=== PATIENT | female | born 1960 | race Caucasian/White ===

== ENCOUNTER → 2017-08-14 | Outpatient (CLI) | payer OTHER ==
[2016-05-22 12:45] VITALS: BMI 51.0
[~2017-08-14] MED LIST: ASPI-757 PO; ASPI-879 PO; CEL100 PO; CLI150 PO; CYAN100T31 PO; CYAN25004; FLU20 PO; FLUO-201 PO; FLUT9.9S; GLUC500C29 PO; INDO25 PO; INDO50CA92 PO; INDO50SU3 PO; IRO150 PO; LOR5/325 PO; MULT-1047 PO; MULT-865 PO; OXYC-865 PO; PER PO; TRAZ-156 PO; VITA1CAP46 PO; [UNRECOGNIZED DRUG - CODE] PO; [UNRECOGNIZED DRUG - OTHER]; potassium PO
== END ==
LOC: RESP 20:52
PROVIDERS: ATTEND Internal Medicine
DX: G47.33 Obstructive sleep apnea (adult) (pediatric) (principal); G47.61 Periodic limb movement disorder

== ENCOUNTER → 2017-08-28 | Outpatient (CLI) | payer OTHER ==
[2016-05-22 12:45] VITALS: BMI 51.0
[~2017-08-28] MED LIST changes: +BUPR-124 PO; +OMEG10007; +OMEP10CA40 PO
[2017-08-28 11:44] LABS: PLATELET COUNT, AUTOMATED 412 K/uL (150-450)
[2017-08-28 11:57] LABS: LDL CHOLESTEROL 87 mg/dl
--- NOTE | 2017-08-28 12:00 | RADIOLOGY IMAGING REPORT ---
FACILITY: [facility] [place] PATIENT NAME: Ene Warren : 1960 MR: [id number] V: [id number] EXAM DATE: ORDERING PHYSICIAN: WILI GOODSON TECHNOLOGIST: Location: [facility] Patient: Ene Warren : 1960 Visit/Account:[id number] Date of Sevice: 08/28/2017 Exam type: CHEST PA AND LAT History: Dyspnea and cough Comparison: May 06, 2016. Findings: A subtle nodular infiltrate seen throughout the right lung and left lung base new since the prior anselmo dy. There is no evidence of pleural effusions. The cardiac silhouette is normal in size. IMPRESSION: 1. Subtle nodular infiltrates throughout the right lung and left lung base worrisome for multifocal pneumonia given the clinical history. Follow-up chest recommended to assure clearing Report Dictated By: María White MD at 08/28/2017 11:54 AM Report E-Signed By: María White MD at 08/28/2017 11:56 AM PAGEN:[email or web address]
== END ==
LOC: LAB 10:59
PROVIDERS: ATTEND Emergency Medicine
DX: R91.8 Other nonspecific abnormal finding of lung field (principal); R06.00 Dyspnea, unspecified
CPT/HCPCS: 36415; 71046; 82040; 82247; 82310; 82374; 82435; 82465; 82565; 82947; 83718; 83880; 84075; 84132; 84155; 84295; 84443; 84450; 84460; 84478; 84520; 85025; 85379

== ENCOUNTER → 2017-08-29 | Outpatient (CLI) | payer OTHER ==
[2016-05-22 12:45] VITALS: BMI 51.0
[~2017-08-29] MED LIST changes: +CODE118S5 PO; +IOPAMIDOL 76% 75 ML INFUS BTL 75 ML ONE; +LEVO750T44 PO; +NS 0.9% 50 ML VIAL 50 ML ONE
--- NOTE | 2017-08-29 14:34 | RADIOLOGY IMAGING REPORT ---
[place] [facility] [place] NAME: Ene Warren : 1960 MR: [id number] V: [id number] EXAM DATE: ORDERING PHYSICIAN: WILI GOODSON TECHNOLOGIST: Location: [facility] Patient: Ene Warren : 1960 Visit/Account:[id number] Date of Sevice: 08/29/2017 CHEST W CONTRAST COMPARISON: None. HISTORY: abnormal chest xray. Follow-up nodular infiltrates, right lung and left lung base. Shortnes s of breath. TECHNIQUE: Axial CT of the chest with intravenous contrast. Coronal and sagittal reformats. One of t he following dose optimization techniques was utilized in the performance of this exam: automated ex posure control; adjustment of the mA and/or kV according to patient size; or use of iterative reconst ruction technique. Specific details can be referenced in the facility's radiology CT exam operationa l policy. CONTRAST: 75 mL of IV Isovue-370. CT CHEST FINDINGS: CARDIAC: Unremarkable. MEDIASTINUM/VELVET: Prominent but subcentimeter size mediastinal and right hilar lymph nodes, probably reactive. VASCULATURE: Minor thoracic aorta calcifications. CHEST WALL: No axillary adenopathy or chest wall mass. LUNGS/PLEURA: Clustered groundglass density nodular foci consistent with multifocal alveolitis/early consolidation throughout the right upper, right middle and right lower lobes, and also present to a lesser degree in the left apex. Trace right pleural effusion.. There is mild bronchial wall thickenin g. Patent central airways. Irregular cluster of more solid-appearing nodules with irregular margins i n the right lower lobe most consistent with early nodular consolidation. BONES: Minor lower thoracic spine degenerative change. No significant lesion or acute appearing fra cture. LIMITED ABDOMEN: Cholecystectomy and gastric bypass surgery changes. OTHER: Negative. IMPRESSION: 1. Multifocal lung opacities consistent with alveolitis/early consolidation throughout the right upp er, right middle and right lower lobes and present to a lesser degree in the left apex. Trace right p leural effusion. Follow-up to complete resolution recommended to exclude underlying malignancy which is unlikely on the basis of the current appearance. 2. Subcentimeter, reactive appearing mediastinal and right hilar nodes. 3. Prior cholecystectomy and gastric bypass surgery. Report Dictated By: Pepe Gardner at 08/29/2017 2:22 PM Report E-Signed By: Pepe Gardner at 08/29/2017 2:29 PM WSN:[id number]
== END ==
LOC: CT 06:54
PROVIDERS: ATTEND Emergency Medicine
DX: R91.8 Other nonspecific abnormal finding of lung field (principal); J90 Pleural effusion, not elsewhere classified; Z90.710 Acquired absence of both cervix and uterus; Z98.84 Bariatric surgery status
CPT/HCPCS: 71260; J7050; Q9967

== ENCOUNTER → 2017-09-05 | Outpatient (CLI) | payer OTHER ==
[2016-05-22 12:45] VITALS: BMI 51.0
[~2017-09-05] MED LIST changes: -IOPAMIDOL 76% 75 ML INFUS BTL 75 ML ONE; -NS 0.9% 50 ML VIAL 50 ML ONE
--- NOTE | 2017-09-10 09:31 | RADIOLOGY IMAGING REPORT ---
FACILITY: [facility] PATIENT NAME: EMIL WHITAKER : [id number] MR: [id number] V: [id number] EXAM DATE: [id number] ORDERING PHYSICIAN: WILI GOODSON TECHNOLOGIST: Alanna Otoole PROCEDURE:BILATERAL DIGITAL SCREENING MAMMOGRAM WITH CAD AND 3D BREAST TOMOSYNTHESIS. COMPARISON:02/23/15 with priors back to 10/18/10. INDICATIONS:ROUTINE SCREENING FINDINGS: Breast parenchymal density is mostly fatty. There are no mammographic findings concerning for malignancy. No significant interval change. DIAGNOSTIC CATEGORY 1--NEGATIVE. RECOMMENDATIONS: ROUTINE MAMMOGRAM AND CLINICAL EVALUATION. IMPRESSION: Bi-RADS 1: Negative. RECOMMENDATION: Followup screening mammogram in one year. Dictated by: Matthew Cevallos on 09/08/2017 at 9:28 Transcribed by: PEDRO LUIS on 09/08/2017 at 22:36 Approved by: María White M.D. on 09/10/2017 at 8:51 [facility]
== END ==
LOC: MAMO 04:23
PROVIDERS: ATTEND Emergency Medicine
DX: Z12.31 Encounter for screening mammogram for malignant neoplasm of breast (principal)
CPT/HCPCS: 77063; 77067

== ENCOUNTER → 2017-09-10 | Outpatient (CLI) | payer OTHER ==
[2016-05-22 12:45] VITALS: BMI 51.0
--- NOTE | 2017-09-10 10:46 | EKG ---
FACILITY: [facility] [place] PATIENT NAME: EMIL WHITAKER : [id number] MR: [id number] V: [id number] EXAM DATE: ORDERING PHYSICIAN: WILI GOODSON TECHNOLOGIST: JEROD Test Reason : PNEUMONIA Blood Pressure : / mmHG Vent. Rate : 061 BPM Atrial Rate : 061 BPM P-R Int : 162 ms QRS Dur : 088 ms QT Int : 440 ms P-R-T Axes : 049 071 058 degrees QTc Int : 442 ms Normal sinus rhythm Normal ECG No previous ECGs available Confirmed by WILI GOODSON ([id number]) on 09/11/2017 8:12:22 AM Referred By: KELLEE Confirmed By:WILI GOODSON
--- NOTE | 2017-09-12 09:20 | RADIOLOGY IMAGING REPORT ---
[place] [facility] [place] EMIL WHITAKER : [id number] MR: [id number] V: [id number] EXAM DATE: ORDERING PHYSICIAN: WILI GOODSON TECHNOLOGIST: Kelly Miles EXAMINATION:TWO-DIMENSIONAL ECHOCARDIOGRAPH REASON:Edema 2D Measurements (normal values in centimeters) LV endLV endRV endVent.LV PostAorticLeftPercent DiastolicSystolicDiastolicSeptumWallRootAtriumShortening (3.5-5.7)(0.9-2.6)(0.6-1.1)(0.6-1.1)(2.0-3.7)(1.9-4.0)(25-35%) [id number] STROKE VOLUME: 85ml ESTIMATED EJECTION FRACTION:58% PARASTERNAL LONG AXIS: Overall left ventricular systolic function appears to be normal. Right ventricular is the upper range of normal in size. Left ventricle is also the upper range of normal in size. The left atrium is enlarged. Aortic valve & mitral valve both appear to open normally. Color examination of the valves reveals a trace to mild amount of mitral insufficiency. Color examination of the aortic valve was unremarkable. No wall motion abnormalities were noted. PARASTERNAL SHORT AXIS: Overall left ventricular function again appears to be normal. No wall motion abnormalities were noted. The aortic valve was trileaflet in configuration & appears to open normally with minimal aortic sclerosis. Color examination of the aortic valve was unremarkable. Color examination of the tricuspid valve revealed a mild amount of tricuspid insufficiency. Color examination of the pulmonic valve was unremarkable. APICAL FOUR AND TWO CHAMBER: Overall left ventricular function again appears to be normal. Aortic valve area & mitral valve area both measure within normal ranges at 2.9 & 2.7cm2 respectively. Left atrial volume is severely increased at 47ml/m2 & right atrial volume is normal at 25ml/m2. Right ventricle is the upper range of normal in size. The right ventricular function appears to be normal with a TAPSE measured at 2.4. Tricuspid regurgitation Vmax is measured at 2.16m/sec. SUBCOSTAL VIEW: Subcostal view was difficult but no pericardial effusion was noted. Doppler examination of the mitral valve in diastole does reveal a normal pattern but there is reversal with the Valsalva maneuver suggesting moderate decrease in diastolic function. Lateral & medial E prime velocities are also decreased. OVERALL IMPRESSION: 1. Normal left ventricular ejection fraction of 58% with a Grade 2/4 decrease in diastolic function indicating moderate decrease in diastolic function. 2. Borderline enlargement of the left ventricle & the right ventricle with severe enlargement of the left atrium. 3. A trileaflet aortic valve with mild aortic sclerosis but no stenosis & no insufficiency was noted. 4. A trace to mild amount of both mitral & tricuspid insufficiency with estimated right ventricular systolic pressure within normal ranges at 27mm Hg. Dictated by: Troy Landeros M.D. on 09/10/2017 at 20:14 Transcribed by: ALAN on 09/11/2017 at 15:41 Approved by: Troy Landeros M.D. on 09/12/2017 at 9:18 [facility]
== END ==
LOC: US 09-04 01:15
PROVIDERS: ATTEND Emergency Medicine
DX: I50.30 Unspecified diastolic (congestive) heart failure (principal); I51.7 Cardiomegaly; I35.8 Other nonrheumatic aortic valve disorders; I34.0 Nonrheumatic mitral (valve) insufficiency; I07.1 Rheumatic tricuspid insufficiency
CPT/HCPCS: 93005; 93306

== ENCOUNTER → 2017-09-30 | Outpatient (CLI) | payer OTHER ==
[2016-05-22 12:45] VITALS: BMI 51.0
[~2017-09-30] MED LIST changes: +LOSA50TA72 PO
--- NOTE | 2017-09-30 08:48 | RADIOLOGY IMAGING REPORT ---
FACILITY: [facility] PATIENT NAME: Ene Warren : 1960 MR: [id number] V: [id number] EXAM DATE: ORDERING PHYSICIAN: WILI GOODSON TECHNOLOGIST: Location: [facility] Patient: Ene Warren : 1960 Visit/Account:[id number] Date of Sevice: 09/30/2017 CHEST PA AND LAT HISTORY: Pneumonia. Cough. COMPARISON: 08/28/2017 FINDINGS: Cardiomediastinal contours: Normal Lungs and pleura: Prior patchy lung infiltrates have resolved. No pneumothorax or pleural effusion. Bones/soft tissues: Normal Other findings: None significant IMPRESSION: 1. Prior patchy lung infiltrates have resolved. Report Dictated By: Salvador Humphries MD at 09/30/2017 8:42 AM Report E-Signed By: Salvador Humphries MD at 09/30/2017 8:43 AM WSN:[id number]
== END ==
LOC: RAD 08:15
PROVIDERS: ATTEND Emergency Medicine
DX: J18.9 Pneumonia, unspecified organism (principal); R05 Cough
CPT/HCPCS: 71046

== ENCOUNTER → 2017-10-03 | Outpatient (CLI) | payer OTHER ==
[2016-05-22 12:45] VITALS: BMI 51.0
[~2017-10-03] MED LIST changes: +FERR324T16 PO; +TRAM-420 PO
== END ==
LOC: LAB 10:03
PROVIDERS: ATTEND Emergency Medicine
DX: I10 Essential (primary) hypertension (principal)
CPT/HCPCS: 36415; 82310; 82374; 82435; 82565; 82947; 84132; 84295; 84520

== ENCOUNTER → 2017-10-06 | Outpatient (CLI) | payer OTHER ==
[2016-05-22 12:45] VITALS: BMI 51.0
== END ==
LOC: RESP 02:50
PROVIDERS: ATTEND Emergency Medicine
DX: J98.4 Other disorders of lung (principal)
CPT/HCPCS: 94060; 94726; 94729

== ENCOUNTER → 2017-11-25 | Outpatient (CLI) | payer OTHER ==
[2016-05-22 12:45] VITALS: BMI 51.0
[~2017-11-25] MED LIST changes: +HYDR12.561 PO; +META800T18 PO
[2017-11-25 10:35] LABS: LDL CHOLESTEROL 61 mg/dl
== END ==
LOC: LAB 08:22
PROVIDERS: ATTEND Internal Medicine Cardiovascular Disease
DX: I10 Essential (primary) hypertension (principal)
CPT/HCPCS: 36415; 82040; 82247; 82310; 82374; 82435; 82465; 82565; 82947; 83718; 84075; 84132; 84155; 84295; 84450; 84460; 84478; 84520; 85027

== ENCOUNTER → 2017-11-28 | Outpatient (CLI) | payer OTHER ==
[2016-05-22 12:45] VITALS: BMI 51.0
--- NOTE | 2017-11-28 12:04 | RADIOLOGY IMAGING REPORT ---
FACILITY: [facility] PATIENT NAME: Ene Warren : 1960 MR: [id number] V: [id number] EXAM DATE: ORDERING PHYSICIAN: LM VERNON [place]CHN[place] [facility] [place] : 1960 Visit/Account:[id number] Date of Sevice: 11/28/2017 CHEST W/O CONTRAST History: Follow up abnormal CT of the chest TECHNIQUE: Contiguous axial images were performed through the chest to the level of the adrenal gla nds. No IV contrast was administered. Coronal and sagittal reformatting was also performed. Dose Lowe ring Technique One of the following dose optimization techniques was utilized in the performance of this exam: Autom ated exposure control; adjustment of the mA and/or kV according to the patient's size; or use of an i terative reconstruction technique. Specific details can be referenced in the facility's radiology C T exam operational policy. COMPARISON STUDIES: August 29, 2017. Lungs / Pleura: There has been partial improvement of the cluster groundglass densities throughout the right lung consistent with improving multifocal alveolitis. The groundglass opacities in the lef t pulmonary apex have completely resolved. There is no evidence of pleural effusions. There has bee n partial improvement of the streaky consolidation in the medial right lung base Mediastinum/nodes: Several small pretracheal and right hilar lymph nodes persist. Heart and vessels: negative. Musculoskeletal / Body wall: Mild degenerative changes of the thoracic spine Upper abdomen: Postsurgical changes from a cholecystectomy and gastric bypass surgery IMPRESSION: Partial improvement of the cluster groundglass densities throughout the right lung consistent with im proving multifocal alveolitis. Continued surveillance recommended to assure complete clearing There is been complete clearing of the groundglass opacities in the left pulmonary apex No evidence of pleural effusions. Partial improvement of the streaky consolidation in the medial rig ht lung base the appearance now suggestive of atelectasis Subcentimeter pretracheal and right hilar lymph nodes unchanged which may be reactive Report Dictated By: María White MD at 11/28/2017 11:25 AM Report E-Signed By: María White MD at 11/28/2017 12:00 PM WSN:[email or web address]
== END ==
LOC: CT 11-13 01:06
PROVIDERS: ATTEND Internal Medicine
DX: M47.894 Other spondylosis, thoracic region (principal); R59.0 Localized enlarged lymph nodes; R91.8 Other nonspecific abnormal finding of lung field; Z90.49 Acquired absence of other specified parts of digestive tract; Z98.84 Bariatric surgery status
CPT/HCPCS: 71250

== ENCOUNTER → 2018-01-29 | Outpatient (CLI) | payer OTHER ==
[2016-05-22 12:45] VITALS: BMI 51.0
[~2018-01-29] MED LIST changes: +FLUO-176 PO; +SULF-198 PO
== END ==
LOC: LAB 09:57
PROVIDERS: ATTEND Emergency Medicine
DX: I10 Essential (primary) hypertension (principal); L03.90 Cellulitis, unspecified
CPT/HCPCS: 36415; 82310; 82374; 82435; 82565; 82947; 84132; 84295; 84520; 86140

== ENCOUNTER 2018-07-15 07:00 | Outpatient (RCR) | payer OTHER ==
[2016-05-22 12:45] VITALS: BMI 51.0
--- NOTE | 2018-05-28 16:46 | PT INITIAL EVALUATION ---
MEDICAL DIAGNOSIS: Lymphedema of B Lower Extremities TREATMENT DIAGNOSIS: Lipedema, Secondary Lymphedema of the Left Lower Extremity DATE OF ONSET: 05/27/18 SUBJECTIVE: Ene is a 57 year old female presenting to physical therapy following 6 month long onset of L LE swelling and edema below the knee level. Pt reports that she has had slight swelling in B LE for many years. However, following her L knee replacement in 2016 pt reports that the L LE has been slightly more swollen. Pt reports that about 6 MO prior, swelling seemed to increase more gradually along with redness and itching on the medial part of her leg. Pt underwent a round of antibiotics with improvement, but not resolution. Pt reports swelling is best in the morning with minimal edema present and following elevation. 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 Pt reports no pain at this time, but occasional hypersensitivity, sharp "jabs" of pain,j and itching/tightness of skin. 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 OBJECTIVE: Pt has B symmetrical edema from the illic crest extending down to the ankle with slight incresed edema on the L LE below the knee. Additionally pt has an area of red patch in a [id number] spanning the medial leg extending to the heel with a satelite location above approximated [id number]. ROM: Foot ROM full without restrictions. Palpation: Red area is not warm to the touch but has increased dryness and scaling of skin surrounding with shiny appearance. Pitting is present B, L>R. Special Tests: Stemmer's sign: (-) on dorsum of foot and toes B. Other Objective Findings: Circumferential Measures of LE (R, L) in cm: 1st: 8.6, 7.5, 2nd digit: 5.6, 5.3, Dorsum: 22.7, 22.5, Arch: 25.1, 24.5, Heel: 36, 34.4, Figure-8: 59.1, 61.1, Abv Mal: 29.6, 31.5, calf: 54.6, 55.7, Below Knee: 52, 53.8, Abv knee: 64, 68 ASSESSMENT: Ene shows signs and symptoms consistent with bilateral lipedema with L LE secondary grade 1 lymphedema. Physical therapy consisting of complete decongestive therapy is indicated for this patient to achieve reductions of limb volume while monitoring for any progression of skin dysfunction. The goal of physical therapy will be to address the above listed deficits to return pt to prior level of function with ADL's. Short Term Goals In 3 weeks pt will reduce the L circumferential volume of the to <55cm and above the malleolus to <30cm for decreased volume and improved function with ADL's. In 4 weeks pt will improve LLIS to <30/72 for improved function with ADL's. In 4 weeks pt will be compliant with HEP and compression stocking/garment use for maintenance of edema with ADL's. Patient's Goals Decrease edema of the left LE for improved function. PLAN: Patient to be seen for Manual Therapy/STM/MET Strengthening/condition Ice/Heat Range of Motion Stretching Neuromuscular Re-ed Closed Chain Program Posture/Body mechanics Gait Trg/Balance Trg Home Exercise Program Mech./Manual Traction Therapeutic Activities 5x/Week for 4 Weeks If you have any questions, comments, or concerns about this report or plan, please contact me at . Thank you, Karo Coronado, PT, DPT, CLT MTDD
--- NOTE | 2018-06-10 09:16 | PT PLAN OF CARE ---
Physician: Sanaz Downing MD Patient is being seen: 5x/Week Therapist: Karo Coronado, PT, DPT, CLT Medical Diagnosis: Lymphedema of B Lower Extremities Treatment Diagnosis: Lipedema, Secondary Lymphedema of the Left Lower Extremity Date of Onset: 05/27/18 Date of Initial Evaluation: 05/27/18 Date patient was last seen: 06/10/18 Number of treatments: 10 Number of cancellations/No shows: 0 INTERVENTIONS: Manual Therapy/STM/MET Strengthening/condition Ice/Heat Range of Motion Stretching Neuromuscular Re-ed Closed Chain Program Posture/Body mechanics Gait Trg/Balance Trg Home Exercise Program Mech./Manual Traction Therapeutic Activities GOALS: In 3 weeks pt will reduce the L circumferential volume of the calf to <55cm and above the malleolus to <30cm for decreased volume and improved function with ADL's. MET In 4 weeks pt will improve LLIS to <30/72 for improved function with ADL's. In 4 weeks pt will be compliant with HEP and compression stocking/garment use for maintenance of edema with ADL's. PATIENT'S GOAL: Decrease edema of the left LE for improved function. Status of Patient's Goals: 08/20 MET Patient Compliance: Excellent Prognosis: Good Reasons for continuing therapy: Ene shows excellent progress with reductions in circumferential volume in B LE from knee to ankle. The L LE now is equal in size to the R with good shaping and both legs without pitting edema. Redness is still present on the medial L LE but has significantly faded around the ankle and has surfaced with scabbing on the medial calf. Further PT to continue with compression to maintain reductions as well as monitor further progress with red patches. Upon near resolution of patches pt will progress to independent compression stockings and compression garments for day and night use. OBJECTIVE: Pt has B symmetrical edema from the iliac crest extending down to the ankle. Additionally pt has an area of red patch in a [id number] spanning the medial leg extending to the heel with a satellite location above approximated [id number]. ROM: Foot ROM full without restrictions. Palpation: Red area is not warm to the touch but has increased dryness and scaling of skin surrounding with shiny appearance. Special Tests: Stemmer's sign: (-) on dorsum of foot and toes B. Other Objective Findings: Circumferential Measures of LE (R, L) in cm (Initial Eval): 1st: 8.6, 7.5, 2nd digit: 5.6, 5.3, Dorsum: 22.7, 22.5, Arch: 25.1, 24.5, Heel: 36, 34.4, Figure-8: 59.1, 61.1, Abv Mal: 29.6, 31.5, calf: 54.6, 55.7, Below Knee: 52, 53.8, Abv knee: 64, 68 Circumferential Measures of LE (R, L) in cm (06/10/18): 1st: 8.4, 7.7, 2nd digit: 5.6, 5.2, Dorsum: 22.3, 22.5, Arch: 23.9, 24.5, Heel: 33, 34.4, Figure-8: 56.1, 57.8, Abv Mal: 26.3, 27.8, calf: 48, 46.8, Below Knee: 48.9, 53.7, Abv knee: 61, 69.2. . If you have any questions or concerns, please feel free to contact me at [phone]. Thank you, Karo Coronado, PT, DPT, CLT MTDD
--- NOTE | 2018-06-26 08:30 | PT PLAN OF CARE ---
Physician: Sanaz Downing MD Patient is being seen: 5x/wk Therapist: Karo Coronado, PT, DPT, CLT & Jeanine Escobar, SPT Medical Diagnosis: Lymphedema of B Lower Extremities Treatment Diagnosis: Lipedema, Secondary Lymphedema of the Left Lower Extremity Date of Onset: 05/27/18 Date of Initial Evaluation: 05/27/18 Date patient was last seen: 06/26/18 Number of treatments: 20 Number of cancellations/No shows: 0 INTERVENTIONS: Manual Therapy/STM/MET Strengthening/condition Ice/Heat Range of Motion Stretching Neuromuscular Re-ed Closed Chain Program Posture/Body mechanics Gait Trg/Balance Trg Home Exercise Program Mech./Manual Traction Therapeutic Activities GOALS: In 3 weeks pt will reduce the L circumferential volume of the calf to <55cm and above the malleolus to <30cm for decreased volume and improved function with ADL's. MET In 4 weeks pt will improve LLIS to <30/72 for improved function with ADL's. MET In 4 weeks pt will be compliant with HEP and compression stocking/garment use for maintenance of edema with ADL's. PATIENT'S GOAL: Decrease edema of the left LE for improved function. Status of Patient's Goals: 2/3 MET Patient Compliance: Excellent Prognosis: Good Reasons for continuing therapy: Ene shows excellent progress with reductions in circumferential volume in B LE from knee to ankle. The red patch area has reduced about 50% with the remaining 50% half purple half pink in color. Pt has developed a firm nodule on the medial anterior portion of the L chambers which is mobile and hard in nature and appears to be surfacing. PT to monitor for progression of the nodule. Pt is in the process of progressing to independent garment use. Further PT is still indicated to continue to progress the reductions in circumferential volume in B LE from knee to ankle to regain normal function with ADL's. OBJECTIVE: Pt has B symmetrical edema from the iliac crest extending down to the ankle. Additionally pt has an area of red patch in a [id number] spanning the medial leg extending to the heel with a satellite location above approximated [id number]. ROM: Foot ROM full without restrictions. Palpation: Red area is not warm to the touch but has increased dryness and scaling of skin.. Special Tests: Stemmer's sign: (-) on dorsum of foot and toes B. Other Objective Findings: Circumferential Measures of LE (R, L) in cm (Initial Eval): 1st: 8.6, 7.5, 2nd digit: 5.6, 5.3, Dorsum: 22.7, 22.5, Arch: 25.1, 24.5, Heel: 36, 34.4, Figure-8: 59.1, 61.1, Abv Mal: 29.6, 31.5, calf: 54.6, 55.7, Below Knee: 52, 53.8, Abv knee: 64, 68 Circumferential Measures of LE (R, L) in cm (06/10/18): 1st: 8.4, 7.7, 2nd digit: 5.6, 5.2, Dorsum: 22.3, 22.5, Arch: 23.9, 24.5, Heel: 33, 34.4, Figure-8: 56.1, 57.8, Abv Mal: 26.3, 27.8, calf: 48, 46.8, Below Knee: 48.9, 53.7, Abv knee: 61, 69.2. Circumferential Measures of LE (R, L) in cm (06/25/18): 1st: 7.9, 7.7, 2nd digit: 5.5, 5.2, Dorsum: 22.3, 22, Arch: 24, 23.3, Heel: 32.9, 33.4, Figure-8: 55.3, 56.2, Abv Mal: 25.4, 26.6, calf: 47, 46.4, Below Knee: 49.1, 53.7, Abv knee: 61, 64.4. Outcome Measures: Lymphedema Life Impact Scale (LLIS): . If you have any questions or concerns, please feel free to contact me at [phone]. Thank you, Karo Coronado, PT, DPT, CLT Jeanine Escobar, SPT MTDD
[~2018-07-15 07:00] MED LIST changes: +COMP1EAC ASDIRECTED; +FLU60VIA41 IM; +INDO-23 PO; -LOSA50TA72 PO; +LOSA50TA80 PO; -TRAZ-156 PO; +TRAZ50TA34 PO
--- NOTE | 2018-07-15 07:52 | PT PLAN OF CARE ---
Physician: Sanaz Downing MD Patient is being seen: 5x/wk Therapist: Karo Coronado, PT, DPT, CLT & Jeanine Escobar, SPT Medical Diagnosis: Lymphedema of B Lower Extremities Treatment Diagnosis: Lipedema, Secondary Lymphedema of the Left Lower Extremity Date of Onset: 05/27/18 Date of Initial Evaluation: 05/27/18 Date patient was last seen: 07/15/18 Number of treatments: 30 Number of cancellations/No shows: 0 INTERVENTIONS: Manual Therapy/STM/MET Strengthening/condition Ice/Heat Range of Motion Stretching Neuromuscular Re-ed Closed Chain Program Posture/Body mechanics Gait Trg/Balance Trg Home Exercise Program Mech./Manual Traction Therapeutic Activities GOALS: In 3 weeks pt will reduce the L circumferential volume of the calf to <55cm and above the malleolus to <30cm for decreased volume and improved function with ADL's. MET In 4 weeks pt will improve LLIS to <30/72 for improved function with ADL's. MET In 4 weeks pt will be compliant with HEP and compression stocking/garment use for maintenance of edema with ADL's. MET PATIENT'S GOAL: Decrease edema of the left LE for improved function. Status of Patient's Goals: 3/3 MET Patient Compliance: Excellent Prognosis: Good Reasons for discharge from therapy: Ene is to discharge from PT at this time secondary to completion of 3/3 functional goals. Ene continues to show excellent improvements, edema continues to decrease in B LE with the continued improvement of skin integrity and skin mobility of B LE. The red skin discoloration on the anterior/medial L tibia continues to integrate well with other skin coloration. Pt received her compression garments and shows independence with donning and doffing the garments. Upon discharge, pt is to continue wearing the compression garments at home to further maintain the edema in her LE's as well as keep up with HEP. OBJECTIVE: Pt has B symmetrical edema from the iliac crest extending down to the ankle. Additionally pt has an area of red patch in a [id number] spanning the medial leg extending to the heel with a satellite location above approximated [id number]. ROM: Foot ROM full without restrictions. Special Tests: Stemmer's sign: (-) on dorsum of foot and toes B. Other Objective Findings: Circumferential Measures of LE (R, L) in cm (Initial Eval): 1st: 8.6, 7.5, 2nd digit: 5.6, 5.3, Dorsum: 22.7, 22.5, Arch: 25.1, 24.5, Heel: 36, 34.4, Figure-8: 59.1, 61.1, Abv Mal: 29.6, 31.5, calf: 54.6, 55.7, Below Knee: 52, 53.8, Abv knee: 64, 68 Circumferential Measures of LE (R, L) in cm (06/10/18): 1st: 8.4, 7.7, 2nd digit: 5.6, 5.2, Dorsum: 22.3, 22.5, Arch: 23.9, 24.5, Heel: 33, 34.4, Figure-8: 56.1, 57.8, Abv Mal: 26.3, 27.8, calf: 48, 46.8, Below Knee: 48.9, 53.7, Abv knee: 61, 69.2. Circumferential Measures of LE (R, L) in cm (06/25/18): 1st: 7.9, 7.7, 2nd digit: 5.5, 5.2, Dorsum: 22.3, 22, Arch: 24, 23.3, Heel: 32.9, 33.4, Figure-8: 55.3, 56.2, Abv Mal: 25.4, 26.6, calf: 47, 46.4, Below Knee: 49.1, 53.7, Abv knee: 61, 64.4. Circumferential Measures of LE (R, L) in cm (07/15/18): 1st: 7.8, 7.3, 2nd digit: 5.2, 5.5, Dorsum: 21, 22, Arch: 23.7, 23.3, Heel: 31.8, 31.5, Figure-8: 54.2, 56.4, Abv Mal: 24.8, 27, calf: 47, 47.5, Below Knee: 53.5, 55.3, Abv knee: 58.5, 66.3. Outcome Measures: Lymphedema Life Impact Scale (LLIS): . If you have any questions or concerns, please feel free to contact me at [phone]. Thank you, Karo Coronado, PT, DPT, CLT Jeanine Escobar, SPT This Physical Therapist was present for the entire physical therapy session directing the services, making the skilled judgement, and was not engaged in treating another patient or doing another task at the same time as the treatment session. JESSED
[2018-08-19] MEDS ORDERED: TRAM-420 PO (17:06)
== END 2018-08-25 ==
LOC: PT 07:00
PROVIDERS: ATTEND Emergency Medicine
DX: I89.0 Lymphedema, not elsewhere classified (principal); Z96.652 Presence of left artificial knee joint
CPT/HCPCS: 97162

== ENCOUNTER → 2018-09-18 | Outpatient (CLI) | payer OTHER ==
[2016-05-22 12:45] VITALS: BMI 51.0
[~2018-09-18] MED LIST changes: +ALBU8.5H IH; +AZIT-1 PO; +METH4TAB66 PO
--- NOTE | 2018-09-18 13:32 | RADIOLOGY IMAGING REPORT ---
[place] [facility] [place] Ene [place] : 1960 MR: [id number] V: [id number] EXAM DATE: ORDERING PHYSICIAN: WILI GOODSON TECHNOLOGIST: Location: [facility] - [place] Patient: Ene Warren : 1960 Visit/Account:[id number] Date of Sevice: 09/18/2018 Exam type: CHEST PA LAT History: Cough Comparison: September 30, 2017. Findings: The lungs are free of acute effusions infiltrates or edema. The cardiac silhouette is normal in size . The trachea is in midline. Visualized bones are unremarkable for age IMPRESSION: 1. No acute cardiopulmonary process is seen Report Dictated By: María White MD at 09/18/2018 1:26 PM Report E-Signed By: María White MD at 09/18/2018 1:27 PM WSN:[email or web address]
== END ==
LOC: RAD 11:07
PROVIDERS: ATTEND Emergency Medicine
DX: R05 Cough (principal)
CPT/HCPCS: 71046

== ENCOUNTER → 2018-09-25 | Outpatient (CLI) | payer OTHER ==
[2016-05-22 12:45] VITALS: BMI 51.0
--- NOTE | 2018-09-25 14:07 | RADIOLOGY IMAGING REPORT ---
[place] [facility] [place] NAME: Ene Warren : 1960 MR: [id number] V: [id number] EXAM DATE: ORDERING PHYSICIAN: WILI GOODSON TECHNOLOGIST: Location: [facility] - [place] Patient: Ene Warren : 1960 Visit/Account:[id number] Date of Sevice: 09/25/2018 Exam type: CHEST PA LAT History: Patient states history of pneumonia last week, on oxygen Comparison: September 18, 2018. Findings: There is a subtle area of increased density just lateral to the right heart border which may represen t a small area of atelectasis or developing infiltrate. Remainder the lung corrales are free of consol idation. The cardiac silhouette is normal. The trachea is in midline. IMPRESSION: 1. Subtle area of increased density just lateral to the right heart border which may represent a sma ll area of developing infiltrate or atelectasis. Report Dictated By: María White MD at 09/25/2018 2:01 PM Report E-Signed By: María White MD at 09/25/2018 2:03 PM WSN:[email or web address]
== END ==
LOC: RAD 11:07
PROVIDERS: ATTEND Emergency Medicine
DX: R91.8 Other nonspecific abnormal finding of lung field (principal)
CPT/HCPCS: 71046